=== PATIENT | male | born 1985 | race Two or more races ===

== ENCOUNTER 2019-11-08 14:14 | Emergency (ER) | payer MEDICAID ==
[~2019-11-08] VITALS: Ht 175.3 cm; Wt 80.7 kg
[~2019-11-08 14:14] MED LIST: NO HOME MEDS
[2019-11-08 14:26] VITALS: BP 124/70
[2019-11-08] MEDS ORDERED: ketorolac tromethamine 15mg/ml inj. IM ONE (14:50)
[2019-11-08] MEDS ORDERED: IBUP-1984 PO (14:54)
== END 2019-11-08 15:26 | disposition home or self-care (01) ==
LOC: ER 14:14
DX: M25.531 Pain in right wrist (principal); M25.431 Effusion, right wrist; Z60.2 Problems related to living alone; Z79.899 Other long term (current) drug therapy
CPT/HCPCS: 29125; 73110; 96372; 99283; J1885

== ENCOUNTER 2020-03-29 16:55 | Emergency (ER) | payer MEDICAID, OTHER ==
[~2020-03-29] VITALS: Ht 175.3 cm; Wt 76.5 kg
[2020-03-29 17:06] VITALS: BP 120/62
[2020-03-29] MEDS ORDERED: cephalexin 250mg capsule PO ONE (19:35)
[2020-03-29] MEDS ORDERED: TETanus/Pertussis (Acell)/Diphther VAC/PF (Tdap-Adult) 0.5ml syringe IMVAC ONE (19:35)
[2020-03-29] MEDS ORDERED: CEPH250T PO (19:41)
== END 2020-03-29 20:46 | disposition home or self-care (01) ==
LOC: ER 16:56
DX: S61.211A Laceration without foreign body of left index finger without damage to nail, initial encounter (principal); F17.200 Nicotine dependence, unspecified, uncomplicated; Z20.3 Contact with and (suspected) exposure to rabies; Z60.2 Problems related to living alone; Z79.2 Long term (current) use of antibiotics; W45.8XXA Other foreign body or object entering through skin, initial encounter; Y93.89 Activity, other specified; Y92.89 Other specified places as the place of occurrence of the external cause; Y99.8 Other external cause status
CPT/HCPCS: 12001; 90471; 90715; 99283

== ENCOUNTER 2020-06-08 12:01 | Emergency (ER) | payer MEDICAID ==
[~2020-06-08] VITALS: Ht 175.3 cm; Wt 79.5 kg
[2020-06-08 12:34] VITALS: BP 136/89
[2020-06-08] MEDS ORDERED: mupirocin 2% ointment 22GM TP STA (13:22)
[2020-06-08] MEDS ORDERED: CefTRIAXone 1000mg IM Kit (w/lidocaine diluent) IM STA (13:22)
[2020-06-08] MEDS ORDERED: azithromycin 250mg tablet PO ONE (13:25)
[2020-06-08] MEDS ORDERED: MUPI22OI30 TOP (13:55)
[2020-06-08] MEDS ORDERED: DOXY100C2 PO (13:55)
== END 2020-06-08 14:02 | disposition home or self-care (01) ==
LOC: ER 12:03
DX: L01.00 Impetigo, unspecified (principal); N34.2 Other urethritis; B07.9 Viral wart, unspecified; Z60.2 Problems related to living alone; Z79.899 Other long term (current) drug therapy
CPT/HCPCS: 36415; 87491; 87591; 96372; 99283; J0696